=== PATIENT | female | born 1980 | race Caucasian/White ===

== ENCOUNTER → 2023-09-24 13:27 | Outpatient (REF) | payer OTHER, SELFPAY | LOC: HWRAD 13:27 | PROVIDERS: ATTENDING PHYSICIAN Chiropractor; FAMILY PHYSICIAN Physician Assistant Medical | DX: M53.2X7 Spinal instabilities, lumbosacral region (principal); R10.2 Pelvic and perineal pain | CPT/HCPCS: 72110; 72170 ==

== ENCOUNTER → 2024-01-05 19:40 | Outpatient (REF) | payer OTHER, SELFPAY | LOC: MRI 3T 19:40 | PROVIDERS: ATTENDING PHYSICIAN Obstetrics & Gynecology; FAMILY PHYSICIAN Physician Assistant Medical | DX: R92.30 Dense breasts, unspecified (principal) | CPT/HCPCS: 77049; A9585 ==

== ENCOUNTER → 2025-02-09 15:04 | Outpatient (REF) | payer OTHER, SELFPAY | LOC: DHSLP 15:04 | PROVIDERS: ATTENDING PHYSICIAN Physician Assistant; FAMILY PHYSICIAN Physician Assistant Medical | DX: G47.33 Obstructive sleep apnea (adult) (pediatric) (principal); R06.83 Snoring | CPT/HCPCS: 95810 ==